=== PATIENT | male | born 1960 | race Caucasian/White ===

== ENCOUNTER 2016-10-09 15:10 | Emergency (ER) | payer OTHER ==
[2016-10-09 16:28] LABS: ABSOLUTE NEUTROPHIL COUNT 4.9 K/mm3 (1.8-7.7); BASO # 0.1 K/mm3 (0.0-0.2); BASO % 0.8 % (0.2-1.0); EOS # 0.1 (0.0-0.5); EOS % 1.4 % (0.9-2.9); HEMATOCRIT 32.6 % (32.0-52.0); HEMOGLOBIN 9.8 gm/l (14.0-18.0); IMM NEUT # 0.1 K/mm3 (0-0.2); IMM NEUT% 1.1 % (0-1); LYMPH # 0.7 (1.0-4.8); MEAN CELL VOLUME 100.3 fl (80.0-94.0); MEAN CORPUSCULAR HEMOGLOBIN 30.2 pg (27.0-31.0); MEAN CORPUSCULAR HGB CONC 30.1 g/dl (33.0-37.0); MEAN PLATELET VOLUME 9.9 fl (7.4-10.4); MONO # 0.6 (0.0-0.8); MONO % 8.8 % (4-12); NEUT % 76.9 % (43-75); PLATELET COUNT 192 K/mm3 (130-400); RED CELL DISTRIBUTION WIDTH 17.8 % (11.5-14.5)
[2016-10-09 16:31] LABS: SPECIFIC GRAVITY 1.025 (1.001-1.030); URINE APPEARANCE CLEAR; URINE BILIRUBIN NEGATIVE (NEGATIVE); URINE BLOOD NEGATIVE (NEGATIVE); URINE COLOR AMBER; URINE GLUCOSE (UA) NEGATIVE (NEGATIVE); URINE LEUKOCYTE ESTERASE NEGATIVE (NEGATIVE); URINE NITRITE NEGATIVE (NEGATIVE); URINE PROTEIN NEGATIVE (NEGATIVE); URINE UROBILINOGEN NORMAL (0-1 mg/dl)
[2016-10-09 16:41] LABS: ALBUMIN 2.3 gm/dL (3.5-5.7); CALCIUM 7.4 mg/dL (8.6-10.3)
--- NOTE | 2016-10-09 17:00 | US ---
EXAMINATION: DUPLEX VENOUS DOPPLER ULTRASOUND:LEFT LOWER EXTREMITY CLINICAL INDICATION: Left leg swelling. Prior history of extremity DVT. On Lovenox. COMPARISON: Prior exam dated 01/26/2016. TECHNIQUE: Both grayscale imaging and Doppler interrogation with spectral analysis and color flow was performed. Compression and flow with augmentation was also utilized. The common femoral vein to the posterior tibial and peroneal veins were assessed. FINDINGS:Appropriate compressibility and flow is demonstrated in the left common femoral, superficial femoral, popliteal, and peroneal and posterior tibial veins proximally. Normal Doppler flow with augmentation was also elicited. IMPRESSION: No evidence of left lower extremity deep venous thrombosis. The findings were uploaded to the electronic medical record for review at approximately 5:00 PM 10/09/2016
== END 2016-10-09 17:20 | disposition home or self-care (01) ==
LOC: ED 15:10
DX: R60.9 Edema, unspecified (principal); C25.9 Malignant neoplasm of pancreas, unspecified; Z86.718 Personal history of other venous thrombosis and embolism; Z79.01 Long term (current) use of anticoagulants